=== PATIENT | male | born 1990 | race American Indian/Alaskan Native ===

== ENCOUNTER 2018-07-31 20:26 | Emergency (ER) | payer SELFPAY ==
[2018-07-31 21:01] VITALS: BP 143/76
--- NOTE | 2018-08-01 02:55 | Emergency Department Report ---
- General Chief Complaint: Upper Respiratory Infection Stated Complaint: HEAD COUGH/DROWZINESS Time Seen by Provider: 08/01/18 02:50 Source: patient, old records reviewed Mode of arrival: Ambulatory Limitations: No Limitations - History of Present Illness Initial Comments: When he 7-year-old -[place] male presents to the emergency room for 1 day of complaints of cough and nasal congestion. Patient admits to sneezing and cough nasal congestion and rhinorrhea. Patient denies any fever chills or nausea no vomiting. He does complain of a headache on the left temporal side. He's taken only one dose of DayQuil. No past medical history currently takes no medications on a daily basis and has no known drug allergies. MD Complaint: cough, rhinorrhea, nasal congestion -: days(s) (1) Severity: mild Severity scale (0 -10): 0 Consistency: constant Improves With: nothing Worsens With: nothing Associated Symptoms: headache, rhinorrhea, nasal congestion, cough. denies: shortness of breath, nausea, vomiting, diarrhea, ear pain Treatments Prior to Arrival: "cold medicine" (times one dose of DayQuil ) - Related Data Previous Rx's Medication Instructions Recorded Last Taken Type Ibuprofen [Motrin 600 MG tab] 600 mg PO Q8H PRN #20 tablet 02/01/15 Unknown Rx traMADol [Ultram 50 MG tab] 50 mg PO Q6HR PRN #10 tablet 02/01/15 Unknown Rx ALBUTEROL Inhaler (OR & NICU) 2 puff IH QID PRN #1 inhalation 02/19/16 Unknown Rx [Proair] HYDROcodone/APAP 5-325 [[place] 1 - 2 each PO Q6HR PRN #14 tablet 02/19/16 Unknown Rx 5/325] Ibuprofen [Motrin 800 MG tab] 800 mg PO Q8HR PRN #20 tablet 02/19/16 Unknown Rx EPINEPHrine [Epipen 2-Elias] 0.3 mg IM ONCE PRN #0.6 ml 05/02/16 Unknown Rx Famotidine [Pepcid] 20 mg PO BID #6 tablet 05/02/16 Unknown Rx Prednisone [predniSONE 10 mg 10 mg PO .TAPER #1 tab.ds.pk 05/02/16 Unknown Rx (6-Day Pack, 21 Tabs)] diphenhydrAMINE [Benadryl CAP] 50 mg PO Q6HR #24 capsule 05/02/16 Unknown Rx Famotidine [Pepcid] 20 mg PO BID #10 tablet 06/09/16 Unknown Rx Loratadine [Claritin] 10 mg PO DAILY #5 tablet 06/09/16 Unknown Rx predniSONE [Deltasone] 50 mg PO QDAY #5 tab 06/09/16 Unknown Rx Fluticasone [Flonase] 1 spray NS QDAY #1 bottle 08/01/18 Unknown Rx Loratadine [Claritin] 10 mg PO DAILY #10 tablet 08/01/18 Unknown Rx Phenylephrine HCl [Sudogest PE] 10 mg PO QID #20 tablet 08/01/18 Unknown Rx Allergies Allergy/AdvReac Type Severity Reaction Status Date / Time No Known Allergies Allergy Verified 02/01/15 10:59 ED Review of Systems ROS: Stated complaint: HEAD COUGH/DROWZINESS Other details as noted in HPI Constitutional: denies: chills, fever ENT: congestion, other (sneezing, rhinorrhea) Respiratory: cough. denies: shortness of breath, wheezing Neurological: headache ED Past Medical Hx - Past Medical History Previous Medical History?: Yes Additional medical history: heart palpitations - Surgical History Past Surgical History?: No - Social History Smoking Status: Never Smoker Substance Use Type: None - Medications Home Medications: Home Medications Medication Instructions Recorded Confirmed Last Taken Type Ibuprofen [Motrin 600 MG tab] 600 mg PO Q8H PRN #20 tablet 02/01/15 Unknown Rx traMADol [Ultram 50 MG tab] 50 mg PO Q6HR PRN #10 tablet 02/01/15 Unknown Rx ALBUTEROL Inhaler (OR & NICU) 2 puff IH QID PRN #1 inhalation 02/19/16 Unknown Rx [Proair] HYDROcodone/APAP 5-325 [[place] 1 - 2 each PO Q6HR PRN #14 tablet 02/19/16 Unknown Rx 5/325] Ibuprofen [Motrin 800 MG tab] 800 mg PO Q8HR PRN #20 tablet 02/19/16 Unknown Rx EPINEPHrine [Epipen 2-Elias] 0.3 mg IM ONCE PRN #0.6 ml 05/02/16 Unknown Rx Famotidine [Pepcid] 20 mg PO BID #6 tablet 05/02/16 Unknown Rx Prednisone [predniSONE 10 mg 10 mg PO .TAPER #1 tab.ds.pk 05/02/16 Unknown Rx (6-Day Pack, 21 Tabs)] diphenhydrAMINE [Benadryl CAP] 50 mg PO Q6HR #24 capsule 05/02/16 Unknown Rx Famotidine [Pepcid] 20 mg PO BID #10 tablet 06/09/16 Unknown Rx Loratadine [Claritin] 10 mg PO DAILY #5 tablet 06/09/16 Unknown Rx predniSONE [Deltasone] 50 mg PO QDAY #5 tab 06/09/16 Unknown Rx Fluticasone [Flonase] 1 spray NS QDAY #1 bottle 08/01/18 Unknown Rx Loratadine [Claritin] 10 mg PO DAILY #10 tablet 08/01/18 Unknown Rx Phenylephrine HCl [Sudogest PE] 10 mg PO QID #20 tablet 08/01/18 Unknown Rx ED Physical Exam - General Limitations: No Limitations General appearance: alert, in no apparent distress - Head Head exam: Present: atraumatic, normocephalic - Eye Eye exam: Present: EOMI - Expanded ENT Exam Expanded TM/Canal exam: Cerumen Impaction: Right TM, Left TM Throat exam: Positive: normal inspection - Neck Neck exam: Present: normal inspection, full ROM. Absent: tenderness, lymphadenopathy - Respiratory Respiratory exam: Present: normal lung sounds bilaterally. Absent: respiratory distress, wheezes, rales, rhonchi - Cardiovascular Cardiovascular Exam: Present: regular rate - Neurological Exam Neurological exam: Present: alert, oriented X3 - Psychiatric Psychiatric exam: Present: normal affect, normal mood ED Course Vital Signs 07/31/18 08/01/18 20:57 01:08 Temperature 99.5 F 98.5 F Pulse Rate 120 H 97 H Respiratory 16 18 Rate Blood Pressure 143/76 O2 Sat by Pulse 95 97 Oximetry ED Medical Decision Making - Medical Decision Making Patient has been evaluated by this provider in fast track. Patient's had 1 day history of nasal congestion for any nose sneezing and headache. Patient has had only one dose of DayQuil. Discussed patient would discharge him on [id number] medication such as Flonase, Claritin, Sudafed and Tylenol. If his symptoms persist greater than 2 weeks he is needs to follow up with [facility] Critical care attestation.: If time is entered above; I have spent that time in minutes in the direct care of this critically ill patient, excluding procedure time. ED Disposition Clinical Impression: Allergic rhinitis Qualifiers: Allergic rhinitis trigger: unspecified Allergic rhinitis seasonality: unspecified Qualified Code(s): J30.9 - Allergic rhinitis, unspecified Disposition: DC- TO HOME OR SELFCARE Is pt being admited?: No Does the pt Need Aspirin: No Condition: Stable Instructions: Allergic Rhinitis (ED) Additional Instructions: Please take prescriptions as prescribed. If her symptoms persist greater than 2 weeks please follow-up with [facility]. Prescriptions: Fluticasone [Flonase] 1 spray NS QDAY #1 bottle Loratadine [Claritin] 10 mg PO DAILY #10 tablet Phenylephrine HCl [Sudogest PE] 10 mg PO QID #20 tablet Referrals: PRIMARY CARE, [Primary Care Provider] - 3-5 Days [facility] [Provider Group] - 3-5 Days Forms: Work/School Release Form(ED)
== END 2018-08-01 03:07 | disposition home or self-care (01) ==
LOC: ED 20:26
DX: J30.9 Allergic rhinitis, unspecified (principal)
CPT/HCPCS: 93005; 93010; 99282